=== PATIENT | male | born 1985 | race Caucasian/White ===

== ENCOUNTER 2016-09-28 10:26 | Emergency (ER) | payer MEDICAID ==
[~2016-09-28] VITALS: Ht 170.2 cm; Wt 89.0 kg
[~2016-09-28 10:26] MED LIST: CEPH-443 PO; HYDR-3612 PO; NAPR-260 PO
[2016-09-28 10:37] VITALS: Ht 170.2 cm; Wt 89.0 kg
[2016-09-28] MEDS ORDERED: SOD CHLORIDE 0.9% 1,000 ML IV STA (12:21)
[2016-09-28 13:06] LABS: ADD SCAN DIFF NO
[2016-09-28 13:11] LABS: BASOPHILS % 0.3 % (0.0-2.0); EOSINOPHILS # 0.4 10^3/ul (0.0-0.5); EOSINOPHILS % 4.7 % (0.0-7.0); HEMATOCRIT 43.7 % (42.0-52.0); HEMOGLOBIN 15.1 g/dl (14.0-18.0); LYMPHOCYTES # 1.9 10^3/ul (0.8-2.9); LYMPHOCYTES % 23.8 % (15.0-51.0); MEAN CORPUSCULAR HEMOGLOBIN 30.9 pg (29.0-33.0); MEAN CORPUSCULAR HGB CONC 34.6 g/dl (32.0-37.0); MEAN CORPUSCULAR VOLUME 89.5 fl (82.0-101.0); MONOCYTE # 0.5 10^3/ul (0.3-0.9); MONOCYTES % 6.6 % (0.0-11.0); NEUTROPHIL # 5.1 10^3/ul (1.6-7.5); NEUTROPHILS % 64.1 % (39.0-77.0); PLATELET COUNT 228 10^3/UL (140-415); RED BLOOD COUNT 4.88 10^6/ul (4.70-6.10); RED CELL DISTRIBUTION WIDTH 12.2 % (11.5-14.5); WHITE BLOOD COUNT 7.9 10^3/ul (4.8-10.8)
[2016-09-28 13:19] LABS: ALBUMIN 4.7 g/dl (3.3-4.9)
[2016-09-28 13:20] LABS: INR 0.99; PROTIME 13.1 Sec (12.2-14.2)
[2016-09-28 13:22] LABS: ALBUMIN/GLOBULIN RATIO 1.2; BILIRUBIN,INDIRECT 0.3 mg/dl (0-1.1); BILIRUBIN,TOTAL 0.3 mg/dl (0.2-1.3); CREATININE 0.68 mg/dl (0.61-1.24); TOTAL PROTEIN 8.6 g/dl (6.1-8.1)
[2016-09-28 13:23] LABS: CALCIUM 9.8 mg/dl (8.4-10.2)
--- NOTE | 2016-09-28 14:07 | RADRPT ---
PROCEDURE: XR bilateral feet. CLINICAL INDICATION: Bilateral foot swelling and pain. TECHNIQUE: Three views of both feet were obtained. COMPARISON: No prior studies are available for comparison. FINDINGS: Right side: No evidence for fracture subluxation or dislocation. No erosive changes are seen. The re is soft tissue swelling. Left side: No evidence for fracture subluxation or dislocation. No erosive changes are seen. There is soft tissue swelling. IMPRESSION: 1. No fracture subluxation or dislocation of either foot. 2. No evidence for erosive change on either side. 3. Soft tissue swelling. RPTAT: XX .Ramsey Melissa MD, MD Date Time Electronically viewed and signed by .Ramsey Melissa MD, on 09/28/2016 14:06 .T/
[2016-09-28] MEDS ORDERED: HYDROCODONE/APAP (5/325) TAB PO ONE (14:30)
[2016-09-28] MEDS ORDERED: CEPHALEXIN 500 MG CAP PO ONE (14:30)
[2016-09-28] MEDS ORDERED: TRIMETHOPRIM/SULFAMETHOX (DS) TAB PO ONE (14:30)
[2016-09-28] MEDS ORDERED: BACTDS PO (15:39)
[2016-09-28] MEDS ORDERED: CEPH-443 PO (15:40)
[2016-09-28] MEDS ORDERED: IBUP-1542 PO (15:40)
--- NOTE | 2016-09-28 15:43 | ERD ---
ER Documentation Chief Complaint Date/Time DATE: 09/28/16 TIME: 15:43 Chief Complaint bilateral painful blisters bottom of toes x3 days HPI Patient is a 30 year old male who presents to the ED with bilateral foot pain. Patient states that that pain is primarily in his toes. Patient states that pain started 2 days prior, however this morning he woke up with sharp, pulsating pain. The pain is constant and currently a 8/10. Pain is worse with ambulating. Patient also reports discoloration and blister formation to bilateral feet. Patient denies any new products, lotions, shoes. Patient reports tactile fever two days ago. Patient has not taken any medication. Patient denies any nausea, vomiting, numbness or tingling. 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 Does not recall anything being in his shoes. ROS All systems reviewed and are negative except as per history of present illness. Medications Home Meds Active Scripts Ibuprofen* (Ibuprofen*) 600 Mg Tablet, 600 MG PO Q6, #30 TAB Prov:GILMA RADER PA-C 09/28/16 Cephalexin* (Keflex*) 500 Mg Capsule, 500 MG PO QID for 10 Days, CAP Prov:GILMA RADER PA-C 09/28/16 Sulfamethoxazole-Trimethoprim* (Bactrim* DS) 800-160 Mg Tab, 1 TAB PO BID for 14 Days, TAB Prov:GILMA RADER PA-C 09/28/16 Reported Medications Hydrocodone Bit-Acetaminophen* ([place]*) 1 Tab Tab, 1 TAB PO TID 09/22/11 Naproxen* (Naprosyn*) 500 Mg Tablet, 500 MG PO QID 09/22/11 Cephalexin* (Keflex*) 500 Mg Capsule, 500 MG PO BID 09/22/11 Allergies Allergies: Coded Allergies: No Known Allergy (Unverified , 09/22/11) PMhx/Soc Medical and Surgical Hx: pt denies Medical Hx, pt denies Surgical Hx History of Surgery: No Anesthesia Reaction: No Hx Neurological Disorder: No Hx Respiratory Disorders: No Hx Cardiac Disorders: No Hx Psychiatric Problems: No Hx Miscellaneous Medical Probl: No Hx Alcohol Use: No Hx Substance Use: No Hx Tobacco Use: No Smoking Status: Never smoker Physical Exam Vitals Vital Signs Date Time Temp Pulse Resp B/P Pulse Ox O2 Delivery O2 Flow Rate FiO2 09/28/16 15:56 98.2 77 18 139/78 99 Room Air 09/28/16 10:37 98.9 63 18 142/84 99 Physical Exam GENERAL: Well-developed, well-nourished male. Appears in no acute distress. HEAD: Normocephalic, atraumatic. EYES: Pupils are equally reactive bilaterally. EOMs grossly intact. No conjunctival erythema. ENT: Moist mucous membranes. No uvula deviation. No kissing tonsils. NECK: Supple. No lymphadenopathy or thyromegaly. No meningismus. LUNG: Clear to auscultation bilaterally. No rhonchi, wheezing, rales or coarse breath sounds. HEART: Regular rate and rhythm. No murmurs, rubs or gallops. BACK: No midline tenderness. Extremities: Equal pulses bilaterally. No peripheral clubbing, cyanosis or edema. No unilateral leg swelling. NEUROLOGIC: Alert and oriented. Moving all four extremities. 5/5 strength in all extremities. Normal speech. Steady gait. SKIN: Bilateral toes appear swollen with mild erythema. 2nd digit L toe- severe swelling with blistering compared to others. Blood tinged discharge noted on toenails. Toenails intact. MSK: Toes are tender to palpation bilaterally. Mid foot, ankle, tib/fib nontender to palpation bilaterally. Normal ROM of ankle and knee bilaterally. Result Diagram: 09/28/16 1245 09/28/16 1245 Results 24 hrs Laboratory Tests Test 09/28/16 12:45 Activated Partial Thromboplast Time 27.0Sec Alanine Aminotransferase (ALT/SGPT) 51IU/L Albumin 4.7g/dl Albumin/Globulin Ratio 1.20 Alkaline Phosphatase 84IU/L Anion Gap 19 Aspartate Amino Transf (AST/SGOT) 44IU/L Basophils # 0.010^3/ul Basophils % 0.3% Blood Urea Nitrogen 10mg/dl Calcium Level 9.8mg/dl Carbon Dioxide Level 29mmol/L Chloride Level 101mmol/L Creatinine 0.68mg/dl Direct Bilirubin 0.00mg/dl Eosinophils # 0.410^3/ul Eosinophils % 4.7% Globulin 3.90g/dl Glucose Level 94mg/dl Hematocrit 43.7% Hemoglobin 15.1g/dl INR International Normalized Ratio 0.99 Indirect Bilirubin 0.3mg/dl Lactic Acid Level 0.9mmol/L Lymphocytes # 1.910^3/ul Lymphocytes % 23.8% Mean Corpuscular Hemoglobin 30.9pg Mean Corpuscular Hemoglobin Concent 34.6g/dl Mean Corpuscular Volume 89.5fl Mean Platelet Volume 10.0fl Monocytes # 0.510^3/ul Monocytes % 6.6% Neutrophils # 5.110^3/ul Neutrophils % 64.1% Nucleated Red Blood Cells # 0.010^3/ul Nucleated Red Blood Cells % 0.0/100WBC Platelet Count 37241^3/UL Potassium Level 4.0mmol/L Prothrombin Time 13.1Sec Prothrombin Time Ratio 1.0 Red Blood Count 4.8810^6/ul Red Cell Distribution Width 12.2% Sodium Level 145mmol/L Total Bilirubin 0.3mg/dl Total Protein 8.6g/dl White Blood Count 7.910^3/ul Current Medications Medications (Trade) Dose Ordered Sig/Yoly Route PRN Reason Start Time Stop Time Status Last Admin Dose Admin Sodium Chloride (NS) 1,000 ml @ 1,000 mls/hr Q1H STAT IV 09/28/16 12:21 09/28/16 13:20 DC 09/28/16 12:59 Acetaminophen/ Hydrocodone Bitart ([place] (5/325)) 1 tab ONCE ONCE PO 09/28/16 14:30 09/28/16 14:31 DC 09/28/16 14:29 Trimethoprim/ Sulfamethoxazole (Bactrim (Ds)) 1 tab ONCE ONCE PO 09/28/16 14:30 09/28/16 14:31 DC 09/28/16 14:29 Cephalexin (Keflex) 500 mg ONCE ONCE PO 09/28/16 14:30 09/28/16 14:31 DC 09/28/16 14:29 Procedures/MDM ED COURSE: The patient was stable throughout ED course. I kept the patient and/or family informed of laboratory and diagnostic imaging results throughout the ED course. DIAGNOSTIC IMAGING: Read by radiologist. DIAGNOSTIC IMAGING REPORT Patient: NIA HARDY : 1985 Age: 30 Sex: M MR #: [id number] DOS: 09/28/16 1221 Ordering MD: GILMA RADER PA-C Location: [facility] Room/Bed: PROCEDURE: XR bilateral feet. CLINICAL INDICATION: Bilateral foot swelling and pain. TECHNIQUE: Three views of both feet were obtained. COMPARISON: No prior studies are available for comparison. FINDINGS: Right side: No evidence for fracture subluxation or dislocation. No erosive changes are seen. There is soft tissue swelling. Left side: No evidence for fracture subluxation or dislocation. No erosive changes are seen. There is soft tissue swelling. IMPRESSION: 1. No fracture subluxation or dislocation of either foot. 2. No evidence for erosive change on either side. 3. Soft tissue swelling. RPTAT: XX .Ramsey Melissa MD, MD Date Time Electronically viewed and signed by .Ramsey Melissa MD, MD on 09/28/2016 14: 06 .T/ CC: GILMA RADER PA-C MEDICATIONS GIVEN: [place], IV fluids Patient tolerated medication well with no adverse reactions. Patient reported improvement in pain. 1st dose of Bactrim and Keflex. No adverse effects noted. MEDICAL DECISION MAKING: This is a 30 year old who presents with bilateral toe pain, swelling and dislocation. Vital signs were reviewed. Patient was afebrile. Patient is not diabetic. Bilateral foot xrays showed no fracture subluxation or dislocation of either foot. No evidence for erosive change on either side. Soft tissue swelling. CBC showed no evidence of systemic infection or severe anemia. CMP showed no evidence of electrolyte abnormalities, severe acidosis, alkalosis, renal failure, or liver disease. Initial lactate was negative. Blood culture was negative. At this time, the patient's presentation is most consistent with toe cellulitis. Low suspicion for abscess formation, sepsis, clostridium perfringens, gas gangrene, insect bites, fungal infection, toe fractures or dislocation. Patient was given first dose of antibiotics here in the ED. Patient 's toes were marked with a pen. Patient was advised to return immediately to the ED if erythema, swelling or warmth begins to spread above the marked borders. Patient and understand. PRESCRIPTIONS: Bactrim, Keflex, Ibuprofen DISCHARGE: At this time, patient is stable for discharge and outpatient management. I discussed with case with Dr. Velez, attending physician. Dr. Velez examined the patient, reviewed the xrays and blood work results and agrees with the above mentioned diagnosis and treatment plan. Wound recheck advised in 2 days. I have advised the patient to avoid any new products, creams or possible allergens. I have advised the patient to avoid scratching the lesions. 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 I have instructed the patient to follow-up with his/her primary care physician in 1-2 days. If symptoms persist, patient may need to see a associate dean for further examinations and testing. I have instructed the patient to promptly return to the ER at any time for any new or worsening symptoms including increased pain, fever, redness, swelling, warmth, difficulty breathing or vomiting. The patient and/or family expressed understanding of and agreement with this plan. All questions were answered. Home care instructions were provided. Departure Diagnosis: Primary Impression: Cellulitis Site of cellulitis: unspecified site Qualified Code: L03.90 - Cellulitis, unspecified cellulitis site Condition: Stable Patient Instructions: Cellulitis Referrals: [facility] YOU HAVE RECEIVED A MEDICAL SCREENING EXAM AND THE RESULTS INDICATE THAT YOU DO NOT HAVE A CONDITION THAT REQUIRES URGENT TREATMENT IN THE EMERGENCY DEPARTMENT. FURTHER EVALUATION AND TREATMENT OF YOUR CONDITION CAN WAIT UNTIL YOU ARE SEEN IN YOUR DOCTORS OFFICE WITHIN THE NEXT 1-2 DAYS. IT IS YOUR RESPONSIBILITY TO MAKE AN APPOINTMENT FOR FOLOW-UP CARE. IF YOU HAVE A PRIMARY DOCTOR --you should call your primary doctor and schedule an appointment IF YOU DO NOT HAVE A PRIMARY DOCTOR YOU CAN CALL OUR PHYSICIAN REFERRAL HOTLINE AT IF YOU CAN NOT AFFORD TO SEE A PHYSICIAN YOU CAN CHOSE FROM THE FOLLOWING [facility] [address] [facility]. [facility] [address] [facility]. [facility] [address] [facility] [address] [facility] [address] [facility]. [facility] [address] [facility] [facility] YOU HAVE RECEIVED A MEDICAL SCREENING EXAM AND THE RESULTS INDICATE THAT YOU DO NOT HAVE A CONDITION THAT REQUIRES URGENT TREATMENT IN THE EMERGENCY DEPARTMENT. FURTHER EVALUATION AND TREATMENT OF YOUR CONDITION CAN WAIT UNTIL YOU ARE SEEN IN YOUR DOCTORS OFFICE WITHIN THE NEXT 1-2 DAYS. IT IS YOUR RESPONSIBILITY TO MAKE AN APPOINTMENT FOR FOLOW-UP CARE. IF YOU HAVE A PRIMARY DOCTOR --you should call your primary doctor and schedule and appointment IF YOU DO NOT HAVE A PRIMARY DOCTOR YOU CAN CALL OUR PHYSICIAN REFERRAL HOTLINE AT . IF YOU CAN NOT AFFORD TO SEE A PHYSICIAN YOU CAN CHOSE FROM THE FOLLOWING [facility] INSTITUTIONS: [facility] [address] [place] [address] [facility] [address] [place] [address] [facility] [address] [place] [address] Additional Instructions: Return to the emergency department immediately for any new or worsening symptoms including but not limited to fever, chills, worsening of swelling, redness, discharge or LOC. Call your primary care doctor TOMORROW for an appointment during the next 1-2 days.See the doctor sooner or return here if your condition worsens before your appointment time. GILMA RADER PA-C Sep 28, 2016 15:43
[2016-09-28 15:56] VITALS: BP 139/78; PULSE 77; RESP 18; TEMP 98.2
== END 2016-09-28 15:57 | disposition home or self-care (01) ==
LOC: FTE 10:26
DX: L03.90 Cellulitis, unspecified (principal); M79.672 Pain in left foot
CPT/HCPCS: 36415; 73630; 80053; 83605; 85025; 85610; 85730; 87040; J7030; Z7502; Z7610